=== PATIENT | male | born 1985 | race Caucasian/White ===

== ENCOUNTER 2021-10-29 09:47 | Emergency (ER) | payer OTHER ==
[~2021-10-29] VITALS: Ht 180.3 cm; Wt 158.8 kg
[~2021-10-29 09:47] MED LIST: HYDR25SU37 RC; [UNRECOGNIZED DRUG - CODE] RC; [UNRECOGNIZED DRUG - REMARK] PO
[2021-10-29 10:15] VITALS: BP 102/64
--- NOTE | 2021-10-29 10:18 | NUR ---
TENT 1.
--- NOTE | 2021-10-29 10:18 | NUR ---
BIB SELF C/O COUGH X 4DAYS. VSS. PPM[facility]: DENIES
--- NOTE | 2021-10-29 10:31 | NUR ---
COVID TAB SWAB DONE. WALKED TO LAB.
--- NOTE | 2021-10-29 11:43 | NUR ---
Patient discharged with v/s stable. Written and verbal after care instructions ABOUT COUGH given and explained. Patient verbalized understanding. Ambulatory with steady gait. All questions addressed prior to discharge. Advised to follow up with PMD.
== END 2021-10-29 11:43 | disposition home or self-care (01) ==
LOC: MED 09:47
DX: R05.9 Cough, unspecified (principal); F17.210 Nicotine dependence, cigarettes, uncomplicated
CPT/HCPCS: 71045; 99284